=== PATIENT | male | born 1965 | race Caucasian/White ===

== ENCOUNTER 2017-01-14 15:32 | Emergency (ER) | payer OTHER ==
[~2017-01-14] VITALS: Ht 185.4 cm; Wt 81.7 kg
[2017-01-14 15:34] VITALS: BP 161/93
[2017-01-14] MEDS ORDERED: NORCO 5-325 TA1 EACH PO (16:58)
[2017-01-14] MEDS ORDERED: CYCLOBENZAPRINE5 MG PO (17:02)
== END 2017-01-14 16:58 | disposition home or self-care (01) ==
LOC: ER 15:32
DX: M77.51 Other enthesopathy of right foot and ankle (principal); M62.838 Other muscle spasm; I10 Essential (primary) hypertension; F10.99 Alcohol use, unspecified with unspecified alcohol-induced disorder